=== PATIENT | male | born 1980 | race Caucasian/White ===

== ENCOUNTER 2018-11-09 14:37 | Emergency (ER) | payer MEDICAID ==
[2018-11-09 14:40] VITALS: BMI 25.9
[2018-11-09] MEDS ORDERED: CLEOCIN HCL300 MG PO (15:54)
[2018-11-09] MEDS ORDERED: TYLENOL W/CODEI1 TAB PO (15:54)
[2018-11-09 16:10] VITALS: BP 142/94
== END 2018-11-09 16:19 | disposition home or self-care (01) ==
LOC: D.ER 14:37
DX: L02.414 Cutaneous abscess of left upper limb (principal)